=== PATIENT | female | born 1975 | race Caucasian/White ===

== ENCOUNTER → 2020-08-30 | Outpatient (CLI) | payer MEDICARE ==
[~2020-08-30] MED LIST: CREON DR 36,001 EACH PO; CYAN1000I IM; DROSP-EE-LEVOM1 EACH PO; DULO60 PO; HUMIRA SQ; HYDACE25S PR; HYDPAM25 PO; Imitrex100 MG; LOPE2C PO; OMEP20ER PO; PROM25 PO; Percocet 5-3251 EACH PO; ROXICODONE5 MG PO; VITAMIN D31000 UNI1 PO; ZYRTEC10 M2 PO
== END | disposition home or self-care (01) ==
LOC: LAB 11:20 → LAB SHORT 11:20
DX: L08.9 Local infection of the skin and subcutaneous tissue, unspecified (principal); L51.0 Nonbullous erythema multiforme
CPT/HCPCS: 87070; 87077; 87147; 87186; 87205; 87529; 87798

== ENCOUNTER 2020-12-18 19:37 | Emergency (ER) | payer MEDICARE ==
[~2020-12-18] VITALS: Ht 172.7 cm; Wt 61.2 kg
[~2020-12-18 19:37] MED LIST changes: -DULO60 PO; -Percocet 5-3251 EACH PO
[2020-12-18 20:56] LABS: Hemoglobin 12.2 g/dL (11.5-16.0); Mean Corpuscular HGB 32.1 pg (26.0-34.0); Mean Corpuscular HGB Conc 33.9 g/dL (31.5-36.5); Mean Corpuscular Volume 95 fL (80-100); Mean Platelet Volume 10.6 fL (9.1-12.4); Platelet Count 293 K/mm3 (150-400); RDW Standard Deviation 41.4 fL (35.1-46.3); White Blood Cell Count 6.06 K/mm3 (4.00-11.30)
[2020-12-18 21:15] LABS: BASOPHILS ABSOLUTE MAN 0.06 K/mm3 (0.00-0.23); BASOPHILS PERCENT MAN 1 % (0-2); EOSINOPHILS PERCENT MAN 5 % (0-6); LYMPHOCYTES ABSOLUTE MAN 3.51 K/mm3 (0.84-5.20); LYMPHOCYTES PERCENT MAN 58 % (21-46); MONOCYTES ABSOLUTE MAN 0.06 K/mm3 (0.16-1.47); MONOCYTES PERCENT MAN 1 % (4-13); NEUTROPHILS ABSOLUTE MAN 2.12 K/mm3 (1.96-9.15); SEG NEUTROPHILS PERCENT MAN 35 % (41-73); TOTAL CELLS COUNTED 100
[2020-12-18 21:38] LABS: Alanine Aminotransfer (ALT/SGP 15 U/L (12-78); Albumin, Blood 2.9 g/dL (3.4-5.0); Albumin/Globulin Ratio 0.7 (0.8-1.8); Alk Phos 66 U/L (50-136); Anion Gap 5 mmol/L (6-16); Aspartate Aminotrans (AST/SGOT 15 U/L (12-37); Bilirubin, Total 0.1 mg/dL (0.1-1.0); Blood Urea Nitrogen 9 mg/dL (8-24); Bun/Creatinine Ratio 12.1 (12.0-20.0); CO2, Blood 24 mmol/L (21-32); Calcium, Blood 8.6 mg/dL (8.5-10.1); Chloride, Blood 110 mmol/L (98-108); Creatinine, Blood 0.74 mg/dL (0.40-1.00); Globulin, Blood 4.3 g/dL (2.2-4.0); Glomerular Filtration Rate >60 (60-); Glucose, Blood 76 mg/dL (70-99); Potassium, Blood 3.9 mmol/L (3.5-5.5); Sodium, Blood 139 mmol/L (136-145); Total Protein, Blood 7.2 g/dL (6.4-8.2)
[2020-12-19] MEDS ORDERED: DULO60 PO (00:01)
[2020-12-19] MEDS ORDERED: Percocet 5-3251 EACH PO (00:43)
== END 2020-12-19 01:26 | disposition home or self-care (01) ==
LOC: ER 19:37
PROVIDERS: Physician Assistant
DX: R10.9 Unspecified abdominal pain (principal); R19.7 Diarrhea, unspecified; F17.200 Nicotine dependence, unspecified, uncomplicated; Z88.5 Allergy status to narcotic agent; Z88.8 Allergy status to other drugs, medicaments and biological substances; Z79.899 Other long term (current) drug therapy
CPT/HCPCS: 36415; 74177; 80053; 85025; 86850; 86900; 86901; 99284-25; A9270; J7030; Q9967